=== PATIENT | female | born 1970 | race Caucasian/White ===

== ENCOUNTER 2022-02-21 10:36 | Outpatient (CLI) | payer OTHER, SELFPAY ==
--- NOTE | 2022-02-21 10:58 | ECG_ITS ---
Measurements Intervals [place] Rate: 65 P: 16 MO: 187 QRS: 22 QRSD: 102 T: 35 QT: 401 QTc: 418 Interpretive Statements SINUS RHYTHM NO PREVIOUS ECG AVAILABLE FOR COMPARISON Electronically Signed On 02-21-2022 17:26:21 CDT by Patience Gaspar M.D.
== END 2022-02-21 10:37 | disposition home or self-care (01) ==
LOC: ANHLAB 10:38
PROVIDERS: Visit Provider Neurological Surgery
DX: Z01.818 Encounter for other preprocedural examination (principal)
CPT/HCPCS: 93005

== ENCOUNTER 2022-03-11 07:57 | Outpatient (CLI) | payer OTHER, SELFPAY | END 2022-03-11 07:58 | disposition home or self-care (01) | LOC: ANHSURGERY 08:04 | PROVIDERS: Visit Provider Neurological Surgery | DX: M47.816 Spondylosis without myelopathy or radiculopathy, lumbar region (principal); Z01.818 Encounter for other preprocedural examination | CPT/HCPCS: 36415; 86850; 86900; 86901 ==

== ENCOUNTER 2022-03-15 18:16 | Observation (INO) | payer OTHER, SELFPAY ==
[2022-03-07 15:25] VITALS: BMI 36.6
--- NOTE | 2022-03-07 16:25 | PC.NURSE ---
Report to the Outpatient Waiting Room, entrance under the green pavilion located off [facility], at time _9:00AM on date __03/14/22 . Planned Procedure Time: __11:00AM . Time changes happen often and if your time is changed the preop area will call you the afternoon before. - You and your visitor will be asked to self-screen and do not enter if you have any COVID symptoms. - We encourage only one visitor and NO visitors under age 16 are allowed at this time. Your visitor will receive communication by the phone number that is given day of service. - The patient visitor is requested to social distance or may leave the building when not with patient due to restrictions. - A mask is required within the hospital. Patients may have clear liquids (water, carbonated beverages, clear teas, apple juice) until 3 hours prior to surgery with a maximum of 20 ounces. - No food from midnight until time of surgery - Take the following medications with a SIP of water the morning of surgery: ___NONE-TAKE YOUR MEDS AT NIGHT ON 03/13/22 PER YOUR ROUTINE Medications to discontinue per physician ALL SUPPLEMENTS AND VITAMINS Date to take last dose__03/11/22 Please no make-up, nail singaporean, hairspray, perfume, deodorant, or body powder the day of surgery. No jewelry (including any body piercings) or valuables the day of surgery, leave them at home. Please take a shower or bath the night before, or the morning of, surgery with an antibacterial soap. Wear comfortable, loose fitting clothing. Children are encouraged to wear pajamas. - Jewelry must be removed prior to entering the operating room. Rings and piercings that are not removed may be cut off. - The hospital will not accept responsibility for valuables. - Please leave all valuables, including medications, at home the day of surgery. If you are going home after surgery, a licensed bus driver/monitor must drive you home. - NO public transportation without another adult. - We recommend that an adult stay with you for 24 hours following discharge. - We also recommend that you do not drive, make important decision, drink alcoholic beverages, or take any drugs that were not prescribed by your health care provider for at least 24 hours after your discharge time. Follow any additional instructions given to you from your surgeon. If you or anyone in your household have experienced Covid symptoms in the past week, please notify your surgeon or the nurse liaison at the phone number below for possible testing. Telephone instructions given to __SHARONA and asked if any additional questions and then verbalized understanding. Patient advised to call surgeon office or pre surgery nurse liaison [phone] if any additional questions.
--- NOTE | 2022-03-13 16:25 | WPDANESEPPF ---
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 Patient Data Age: 52 Gender: F Height: 1.65 m Weight: 100 kg Allergies Allergy/AdvReac Type Severity Reaction Status Date / Time meperidine Allergy Intermediate Swelling Verified 03/07/22 16:10 of Lip/Tongue/Throat codeine Allergy Mild Rash Verified 02/18/22 16:13 Home Medications Medication Instructions Recorded Confirmed Type zesehewpkw-ahwlrzblvviah-nfbbrdhy 1 tablet PO Q6H PRN Migraine 02/18/22 03/07/22 History 50 mg-325 mg-40 mg tablet Headache cetirizine 10 mg tablet 10 mg PO DAILY PRN ALLERGIES 02/18/22 03/07/22 History diclofenac sodium 75 mg 75 mg PO DAILY PRN Pain 02/18/22 03/07/22 History tablet,delayed release ergocalciferol (vitamin D2) 50 mcg 50 mcg PO DAILY 02/18/22 03/07/22 History (2,000 unit) capsule estradiol 0.5 mg tablet 0.5 mg PO DAILY 02/18/22 03/07/22 History ezetimibe 10 mg tablet 10 mg PO DAILY 02/18/22 03/07/22 History fenofibrate 160 mg tablet 160 mg PO DAILY 02/18/22 03/07/22 History montelukast 10 mg tablet 10 mg PO DAILY 02/18/22 03/07/22 History (Singulair) ondansetron 8 mg disintegrating 8 mg PO Q12H PRN Nausea 02/18/22 03/07/22 History tablet propranolol 20 mg tablet 20 mg PO DAILY 02/18/22 03/07/22 History rosuvastatin 40 mg tablet 40 mg PO DAILY 02/18/22 03/07/22 History tizanidine 4 mg capsule 4 mg PO QHS PRN Spasms 02/18/22 03/07/22 History valacyclovir 1 gram tablet 1,000 mg PO DAILY PRN Cold Sores 02/18/22 03/07/22 History venlafaxine 37.5 mg tablet 37.5 mg PO DAILY 02/18/22 03/07/22 History Zinc Gummie 1 gummy PO DAILY 03/07/22 03/07/22 History albuterol 90 mcg/actuation aerosol 90 mcg inhalation Q4-5H PRN SOB 03/07/22 03/07/22 History inhaler azelastine 137 mcg (0.1 %) nasal 2 spray intranasal BID 03/07/22 03/07/22 History spray aerosol calcium carbonate 600 mg calcium 600 mg PO DAILY 03/07/22 03/07/22 History (1,500 mg) tablet (Calcium) cholecalciferol (vitamin D3) 125 125 mcg PO DAILY 03/07/22 03/07/22 History mcg (5,000 unit) tablet (Vitamin D3) diphenhydramine HCl 25 mg capsule 25 mg PO TID PRN Itching 03/07/22 03/07/22 History (Benadryl) fluticasone propionate 220 1 puff inhalation Q12H PRN SOB 03/07/22 03/07/22 History mcg/actuation HFA aerosol inhaler (Flovent HFA) hydrocodone 5 mg-acetaminophen 325 1 tablet PO Q4H PRN MIGRAINES 03/07/22 03/07/22 History mg tablet magnesium citrate 100 mg tablet 100 mg PO DAILY 03/07/22 03/07/22 History multivitamin with minerals-folic 1 tablet PO DAILY 03/07/22 03/07/22 History acid 200 mcg chewable tablet (Adult Multivitamin Gummies) potassium 99 mg tablet 99 mg PO DAILY 03/07/22 03/07/22 History ubrogepant 100 mg tablet (Ubrelvy) 100 mg PO ONCE PRN Migraine 03/07/22 03/07/22 History Headache ECG: Date of Service: 02/21/22 Procedure(s): CA 12 lead EKG Accession Number(s): [id number] cc: ~ ? Measurements Intervals? [place]? Rate: ? 65 ? P:? 16 [place]: ? 187? QRS:? 22 QRSD: ? 102? T:? 35 QT: ? 401? QTc:? 418? Interpretive Statements SINUS RHYTHM NO PREVIOUS ECG AVAILABLE FOR COMPARISON Electronically Signed On 02-21-2022 17:26:21 CDT by Patience Gaspar M.D. Patient hx anesthesia problems: none Family hx anesthesia problems: none Results Review: All pre-operative results and documents have been reviewed as part of the pre-operative evaluation. [facility] Past Medical History Medical History (Updated 03/13/22 @ 16:26 b
[2022-03-14] VITALS (13 sets, daily range): BP systolic 99–138; BP diastolic 50–88; PULSE 57–93; RESP 12–20; TEMP 36.1–37.2; O2SAT 94–100
[2022-03-14] MEDS: LACTATED RINGERS 1,000 ML 30 ML IV CONT ×2 (08:21→12:30)
--- NOTE | 2022-03-14 09:43 | WPDHPUPDATE1 ---
History and Physical Update Update Date/Time: 03/14/22 09:43 History and Physical has been reviewed, including an updated exam of the patient. There are NO changes in the patient's condition. Risks, benefits, and alternatives have been discussed and questions answered. Patient agrees to proceed with procedure.
[2022-03-14] MEDS: ceFAZolin 2 GM/D5W 50 ML 2 GM/50 ML BAG IVPB (10:01)
[2022-03-14] MEDS: BUPIVACAINE/EPINEPHRINE 0.25% 50 ML VIAL INFILTRATE (10:38)
--- NOTE | 2022-03-14 12:35 | W.PM.PROC2 ---
Procedure Note - Detailed Date of Procedure 03/14/22 Pre-op Diagnosis L 4-5 Spondylosis, Synovial cyst Post-op Diagnosis Same Procedure Performed L4-5 complete diskectomy, bilateral neural foraminotomy, complete diskectomy, interbody arthrodesis utilizing Orthofix titanium interbody devices and local autograft bone, L4-5 pedicle screw instrumentation Surgeon Arvind Us MD Small Machine Bindery Operator Riri Anesthesia General Indications Karine is a 52-year-old female with back and leg pain related to severe spondylosis and gapping of the facets at L4-5 with synovial cyst. She presents now for posterior lumbar interbody fusion at that level. Description of Procedure The patient was brought to the operating room in the supine position, was sedated, intubated and placed under general anesthesia in routine fashion. She was then turned into the prone position on a Wilfredo frame. The area of operation on her back was examined, marked for incision, prepped and draped in routine sterile fashion. Incision was marked over the L4-L5 spinous processes in the midline. This area was injected 0.5% lidocaine with [id number] epinephrine. Intravenous antibiotics given prior to incision. Incision was made with a 10 blade scalpel down to the lumbodorsal fascia. Subperiosteal dissection of the muscle soft tissue away spinous process and lamina at L4-5 bilaterally was with a subperiosteal elevator and Bovie cautery. A verifying x-rays obtained to verify the level of operation. The L4 spinous process was removed with a Danette rongeur. Kerrison punches, curved curettes and a Leksell rongeur were used to remove lamina in the midline until the soft contents of the canal were encountered. A Midas Dilip drill was used to resect pars bilaterally at L4. The inferior articular process and facet of L4 could then be removed bilaterally. These +spinous process were stripped free of soft tissue and morselized for later use as interbody autograft. Curved curettes and Kerrison punches were used to define a plane with the dura and removed bone and ligament flush with the pedicle and through the L4-5 foramen widely decompressing the exiting nerve root. With the thecal sac retracted and protected the disc space was entered bilaterally using an 11 blade scalpel. Scrapers of various sizes curettes of various configurations, pituitary rongeur and a rasp were used to remove as much cartilaginous endplate and disc material as possible down to bleeding cortical flat surfaces on the opposing bones. The disc space was incised and 11 mm interbody devices were chosen. These were filled with local autograft bone. The disc space was likewise filled with local autograft bone medially and anteriorly. The interbody devices were then placed with 2-3 mm countersink within the disc space bilaterally. Pedicle screw instrumentation was then performed by observing and palpating the pedicle while in hole was made and superior to the process above the pedicle using a Midas Dilip drill. Pedicle was then cannulated with a pedicle probe, checked for continuity with the ball probe, tapped the 5.5 mm tap and a 6.5 x 50 mm screw was placed into each pedicle on each side. Rods were placed in the screw heads on either side and secured position using the caps for that purpose. These were definitively tightened with a torque and anti torque device. A verifying x-rays obtained to verify good position of the instrumentation which was confirmed. The wound was then copiously irrigated with bacitracin irrigation all bleeding stopped with bipolar and Bovie cautery and Gelfoam thrombin powder. A medium Hemovac drain was left in the subfascial position buried out the info and right of the incision. The wound was then closed in layered fashion with 2-0 Vicryl interrupted sutures in the lumbodorsal fascia and Abdoulaye's layer. 3-0 Vicryl buried interrupted sutures were placed in the dermis and the skin was closed with a running 4-0 Monocryl
[2022-03-14] MEDS: fentaNYL CITRATE INJ (*CRX) 100 MCG/2 ML VIAL 25 MCG IV PUSH ×8 (12:53→14:08)
[2022-03-14] MEDS: diphenhydrAMINE HCl INJ 50 MG/ML VIAL 25 MG IV PUSH (13:32)
[2022-03-14] MEDS: KCL 20 MEQ/D5/0.45% SOD CHL 1,000 ML 100 ML IV CONT (15:05)
[2022-03-14] MEDS: CYCLOBENZAPRINE HCL 10 MG TABLET PO ×2 (15:11→21:01)
--- NOTE | 2022-03-14 15:30 | PCPTNOTE ---
Attempted PT evaluation, per RN, pt is in too much pain to participate in therapy this date. Will Follow.
[2022-03-14] MEDS: MORPHINE SULFATE (*CRX) 2 MG/ML INJ IV PUSH ×4 (16:04→23:01)
--- NOTE | 2022-03-14 16:31 | PCOTNOTE ---
Attempted occupational therapy evaluation on this date, Per RN, pt is in too much pain to participate in therapy today. Will Follow.
[2022-03-14] MEDS: AZELASTINE HCL NASAL 0.1% 137 MCG/SPR 30 ML BTL 2 SPRAY NASAL (17:20)
[2022-03-14] MEDS: ONDANSETRON INJ 4 MG/2 ML VIAL IV PUSH (17:40)
[2022-03-14] MEDS: diphenhydrAMINE HCl CAP 25 MG CAPSULE PO (21:01)
[2022-03-14] MEDS: estradioL 0.5 MG TABLET PO (21:01)
[2022-03-14] MEDS: EZETIMIBE 10 MG TABLET PO (21:02)
[2022-03-14] MEDS: MONTELUKAST SODIUM 10 MG TABLET PO (21:02)
[2022-03-14] MEDS: PROPRANOLOL HCL 20 MG TABLET PO (21:02)
[2022-03-14] MEDS: ROSUVASTATIN 10 MG TABLET 40 MG PO (21:02)
[2022-03-14] MEDS: VENLAFAXINE HCL 37.5 MG TABLET PO (21:02)
[2022-03-14] MEDS: DOCUSATE SODIUM 100 MG CAPSULE PO (21:02)
[2022-03-14] MEDS: FENOFIBRATE 160 MG TABLET PO (21:02)
[2022-03-14] MEDS: ALPRAZolam (*CRX) 0.5 MG TABLET PO (23:01)
--- NOTE | ~2022-03-15 | XR_ITS ---
XR fluoroscopy no charge L4-5 posterior lumbar interbody fusion TECHNIQUE: Fluoroscopy used during L4-5 posterior lumbar interbody fusion performed by [Arvind Us MD] on 03/14/2022. 8 seconds of fluoroscopy time with 1 images captured. FINDINGS: Correlate with procedure note. IMPRESSION: Fluoroscopy used during L4-5 posterior lumbar interbody fusion. Reviewed, dictated and finalized at location B.
[2022-03-15 00:37] VITALS: BP 100/50; PULSE 78; RESP 18; TEMP 36.6; O2SAT 96
[2022-03-15] MEDS: oxyCODONE HCL (*CRX) 10 MG TAB SR 12HR PO ×2 (01:28→10:01)
[2022-03-15] MEDS: MORPHINE SULFATE (*CRX) 2 MG/ML INJ IV PUSH ×2 (05:20→11:35)
[2022-03-15] MEDS: KCL 20 MEQ/D5/0.45% SOD CHL 1,000 ML 100 ML IV CONT (05:20)
[2022-03-15 05:22] VITALS: BP 118/65; PULSE 83; RESP 16; TEMP 36.4; O2SAT 96
--- NOTE | 2022-03-15 07:56 | WPDANESPN ---
Anes - Prog Note Post-Op Date/Time: 03/15/22 07:56 Vital Signs: Last Vital Signs Temp 36.4 C 03/15/22 05:22 Pulse 83 03/15/22 05:22 Resp 16 03/15/22 05:22 BP 118/65 03/15/22 05:22 Pulse Ox 96 03/15/22 05:22 O2 Del Method Room Air 03/14/22 20:00 O2 Flow Rate 2 03/14/22 14:10 Pain Score (VAS): 6 I/O: Intake & Output 03/14/22 03/14/22 03/15/22 15:59 23:59 07:59 Intake Total 2250 50 1050 Output Total 629 65 5567 Balance 7090 -20 -972 Patient Feedback: Patient satisfied with anesthetic care.
[2022-03-15] MEDS: CYCLOBENZAPRINE HCL 10 MG TABLET PO (08:11)
[2022-03-15] MEDS: ONDANSETRON INJ 4 MG/2 ML VIAL IV PUSH (08:11)
[2022-03-15] MEDS: CHOLECALCIFEROL 1,000 UNITS TABLET 5000 UNITS PO (08:12)
[2022-03-15] MEDS: DOCUSATE SODIUM 100 MG CAPSULE PO ×2 (08:12→22:03)
[2022-03-15] MEDS: MULTIVITS W-FE,MIN CHEWABLE TABLET 1 TABLET PO (08:12)
[2022-03-15] MEDS: CALCIUM CARBONATE (OSCAL) 500 MG TABLET PO (08:12)
[2022-03-15] MEDS: AZELASTINE HCL NASAL 0.1% 137 MCG/SPR 30 ML BTL 2 SPRAY NASAL (08:12)
--- NOTE | 2022-03-15 13:10 | PC.NURSE ---
Driver/Merchandiser called Dr. Us office and spoke with Dr. Garrett. Order changes were made to MAR.
[2022-03-15 15:22] VITALS: BP 100/57; PULSE 83; RESP 18; TEMP 36.6; O2SAT 98
[2022-03-15] MEDS: ACETAMINOPHEN 500 MG TABLET PO (16:36)
--- NOTE | 2022-03-15 18:03 | WPDNEUROSGPN ---
Progress Note: A&P Assessment and Plan (1) Stenosis of lateral recess of lumbar spine: Code(s): M48.061 - Spinal stenosis, lumbar region without neurogenic claudication Status: Acute Assessment and Plan: 52 year old female POD#1 fromlumbar decompression and fusion Mobilizing - patient with history of chronic pain and thus more challenging to control operative pain - not unexpected Will remain here overnight and adjust mm relaxants Mobilize with PT in am - anticipate d/c in am on home regimen of norco and tizanadine Follow up with Dr. Us as scheduled in 6 weeks Subjective Date/time seen: 03/15/22 18:03 PAtient with significant hip pain. Ambulated in halls with PT Not tolerating pain medications due to soft blood pressure Arreaga d/c'ed and voiding independently Drain d/c'ed Exam Narrative: AWake, alert, orietned x 3 Speech CF RUTHY EOMI Face= TML MAEW with good strength Patient with pain and limited mobility - requires assistance to stand, but is able to stand under her own power Dressing / Incision CDI Objective Data Vital Signs Vital Signs: Vital Signs - 24 hr 03/14/22 21:02 03/14/22 21:02 03/14/22 20:00 Temperature 98.9 F Pulse Rate 82 93 Respiratory Rate 18 Blood Pressure 125/79 Pulse Oximetry 98 Oxygen Delivery Room Air 03/15/22 00:37 03/15/22 05:22 03/15/22 07:27 Temperature 98 F 97.6 F Pulse Rate 78 83 Respiratory Rate 18 16 Blood Pressure 100/50 L 118/65 Pulse Oximetry 96 96 Oxygen Delivery Room Air 03/15/22 08:08 03/15/22 09:30 03/15/22 15:22 Temperature 97.8 F Pulse Rate 83 Respiratory Rate 18 Blood Pressure 100/57 L Pulse Oximetry 98 Oxygen Delivery Room Air Room Air Intake/Output Intake/Output: Intake & Output 03/12/22 03/13/22 03/14/22 03/15/22 23:59 23:59 23:59 23:59 Intake Total 2300 1600 Output Total 160 1175 Balance 2140 425 Meds/Results Medications: Active Medications Generic Name Dose Route Start Last Admin Trade Name Freq PRN Reason Stop Dose Admin Acetaminophen 500 mg 03/15/22 12:48 03/15/22 16:36 Acetaminophen 500 Mg Tablet PO 500 mg Q4H PRN Administration Mild Pain (1-3) or Fever Al Hydrox/Mg Hydrox/Simethicone 20 ml 03/14/22 14:40 Mag Hydrox/Al Hydrox/Simeth 30 Ml Udc PO Q4H PRN Indigestion/Heartburn Albuterol 1 puff 03/14/22 15:02 Albuterol Sulfate (*Sp) Aerosol 1 Puff INHALATION Q4H PRN Shortness Of Breath Azelastine HCl 2 spray 03/14/22 17:00 03/15/22 16:41 Azelastine Hcl Nasal 0.1% 137 Mcg/Spr 30 Ml Btl NASAL Not Given BID NALLELY Bisacodyl 10 mg 03/14/22 14:40 Bisacodyl 10 Mg Suppository RECTAL DAILY PRN Constipation Calcium Carbonate 500 mg 03/15/22 09:00 03/15/22 08:12 Calcium Carbonate (Oscal) 500 Mg Tablet PO 500 mg DAILY NALLELY Administration Cyclobenzaprine HCl 10 mg 03/14/22 14:40 03/15/22 08:11 Cyclobenzaprine Hcl 10 Mg Tablet PO 10 mg TID PRN Administration Muscle Spasms Diphenhydramine HCl 25 mg 03/14/22 14:40 03/14/22 21:01 Diphenhydramine Hcl Cap 25 Mg Capsule PO 25 mg TID PRN Administration Itching Docusate Sodium 100 mg 03/14/22 21:00 03/15/22 08:12 Docusate Sodium 100 Mg Capsule PO 100 mg Q12HR NALLELY Administration Ezetimibe 10 mg 03/14/22 21:00 03/14/22 21:02 Ezetimibe 10 Mg Tablet PO 10 mg HS NALLELY Administration Estradiol 0.5 mg 03/14/22 21:00 03/14/22 21:01 Estradiol 0.5 Mg Tablet PO 0.5 mg HS NALLELY Administration Fenofibrate 160 mg 03/14/22 21:00 03/14/22 21:02 Fenofibrate 160 Mg Tablet PO 160 mg HS NALLELY Administration Fluticasone Propionate 1 puff 03/14/22 14:40 Fluticasone Prop 220 Mcg (*Sp) 12 Gm Inhaler INHALATION Q12H PRN Shortness Of Breath Cefazolin Sodium 1 gm in 50 mls @ 100 mls/hr 03/14/22 18:00 03/15/22 10:32 Ancef 1 Gm/D5w 50 Ml Pm IVPB Infused Q8H NALLELY Infusion Loratadine
[2022-03-15 19:49] VITALS: BP 118/71; PULSE 83; RESP 18; TEMP 37.1; O2SAT 94
[2022-03-15 22:03] VITALS: PULSE 68
[2022-03-15] MEDS: estradioL 0.5 MG TABLET PO (22:03)
[2022-03-15] MEDS: PROPRANOLOL HCL 20 MG TABLET PO (22:03)
[2022-03-15] MEDS: TIZANIDINE HCL 4 MG TABLET BY MOUTH (22:03)
[2022-03-15] MEDS: ROSUVASTATIN 10 MG TABLET 40 MG PO (22:04)
[2022-03-15] MEDS: VENLAFAXINE HCL 37.5 MG TABLET PO (22:04)
[2022-03-15] MEDS: MONTELUKAST SODIUM 10 MG TABLET PO (22:04)
[2022-03-15] MEDS: EZETIMIBE 10 MG TABLET PO (22:04)
[2022-03-15] MEDS: FENOFIBRATE 160 MG TABLET PO (22:04)
[2022-03-16] MEDS: oxyCODONE HCL (*CRX) 5 MG TAB IR PO ×3 (02:16→13:13)
[2022-03-16 04:36] VITALS: BP 111/67; PULSE 72; RESP 18; TEMP 36.4; O2SAT 95
[2022-03-16] MEDS: LORATADINE 10 MG TABLET PO (08:27)
[2022-03-16] MEDS: CALCIUM CARBONATE (OSCAL) 500 MG TABLET PO (08:27)
[2022-03-16] MEDS: MULTIVITS W-FE,MIN CHEWABLE TABLET 1 TABLET PO (08:27)
[2022-03-16] MEDS: CHOLECALCIFEROL 1,000 UNITS TABLET 5000 UNITS PO (08:28)
[2022-03-16] MEDS: AZELASTINE HCL NASAL 0.1% 137 MCG/SPR 30 ML BTL 2 SPRAY NASAL (08:29)
[2022-03-16] MEDS: TIZANIDINE HCL 4 MG TABLET BY MOUTH (08:29)
[2022-03-16] MEDS: DOCUSATE SODIUM 100 MG CAPSULE PO (08:29)
--- NOTE | 2022-04-08 09:36 | PM.DS ---
DS: Admitting Diagnosis Discharge Date 03/16/22 Admitting Diagnosis L4-5 spondylolisthesis and spondylosis DS: Summary Hospital Course Hospital Course: Karine was taken to the operating room on 03/14/2022 with the aforementioned L4-5 posterior lumbar interbody fusion was performed without complication. Physical and occupational therapy were involved in her care. On postoperative day 1 her drain and Arreaga catheter removed. By postop day 2 she was eating, ambulating and a pain was under control by mouth pain medicine. Her wounds remain clean, dry and intact. She was afebrile stable vital signs. She was therefore allowed to be discharged home. Time Spent with Patient Time attestation: Total time spent providing and/or coordinating discharge services: Discharge Plan Discharge Attending physician on discharge: Arvind Us Consulting providers: Pk Choudhary ; Amado Holden ; Jenny Pop ; Charlotte Garrett Discharging Clinician: Mannie Mendes Anticipated Discharge Date/Time: 03/16/22 12:58 Patient Disposition: Home, Self-Care Activity: other - see discharge instructions Diet: regular Wound Care Instructions: follow printed instructions Discharge Instructions: discharge to home in am 03/16 Ok to shower on POD # 3 Ok to remove dressing and keep off today. No bending, lifting greater than 10 lbs, or exaggeratred twisting Stand Alone Forms: Avoid NSAIDs, General Discharge Instructions Follow-up/Referrals: Arvind Us MD [Physician] - Discharge Medications: New hydrocodone-acetaminophen 5-325 mg tablet 1 tablet PO Q4H PRN (Reason: pain) Qty: 35 0RF tizanidine 4 mg tablet 4 mg PO Q8H PRN (Reason: muscle spasticity) Qty: 30 0RF Continued estradiol 0.5 mg tablet 0.5 mg PO DAILY Rx Instructions: off 5 days; repeat cycle TAKES @ HS cetirizine 10 mg tablet 10 mg PO DAILY PRN (Reason: ALLERGIES) diclofenac sodium 75 mg tablet,delayed release (DR/EC) 75 mg PO DAILY PRN (Reason: Pain) fenofibrate 160 mg tablet 160 mg PO DAILY Rx Instructions: TAKES @ HS ezetimibe 10 mg tablet 10 mg PO DAILY Rx Instructions: TAKES @ HS montelukast [Singulair] 10 mg tablet 10 mg PO DAILY Rx Instructions: TAKES @ HS ondansetron 8 mg tablet,disintegrating 8 mg PO Q12H PRN (Reason: Nausea) Rx Instructions: FOR NAUSEA WITH MIGRAINES propranolol 20 mg tablet 20 mg PO DAILY Rx Instructions: FOR MIGRAINES TAKES @ HS rosuvastatin 40 mg tablet 40 mg PO DAILY Rx Instructions: TAKES @ HS tizanidine 4 mg capsule 4 mg PO QHS PRN (Reason: Spasms) valacyclovir 1 gram tablet 1,000 mg PO DAILY PRN (Reason: Cold Sores) venlafaxine 37.5 mg tablet 37.5 mg PO DAILY Rx Instructions: TAKES @ HS ergocalciferol (vitamin D2) 50 mcg (2,000 unit) capsule 50 mcg PO DAILY Rx Instructions: TAKES @ HS srqxvwvobr-ozekwrvvszfoc-ghlb 50-325-40 mg tablet 1 tablet PO Q6H PRN (Reason: Migraine Headache) hydrocodone-acetaminophen 5-325 mg Tablet 1 tablet PO Q4H PRN (Reason: MIGRAINES) azelastine 137 mcg (0.1 %) Aerosol,[place] 2 spray INTRANASAL BID Rx Instructions: administer into each nostril Zinc Gummie 1 gummy PO DAILY calcium carbonate [Calcium 600] 600 mg calcium (1,500 mg) Tablet 600 mg PO DAILY potassium 99 mg Tablet 99 mg PO DAILY cholecalciferol (vitamin D3) [Vitamin D3] 125 mcg (5,000 unit) Tablet 125 mcg PO DAILY Adult Multivitamin Gummies 200 mcg Tablet,Chewable 1 tablet PO DAILY magnesium citrate 100 mg Tablet 100 mg PO DAILY fluticasone propionate [Flovent HFA] 220 mcg/actuation Hfa Aerosol Inhaler 1 puff INHALATION Q12H PRN (Reason: SOB) albuterol 90 mcg/actuation Aerosol 90 mcg INHALATION Q4-5H PRN (Reason: SOB) Ubrelvy 100 mg Tablet 100 mg PO ONCE P
== END 2022-03-16 13:48 | disposition home or self-care (01) ==
LOC: ANHSURGERY 18:23 → ANH3MED 03-16 13:02
PROVIDERS: Admitting Provider Neurological Surgery; Visit Provider Neurological Surgery
PROC: (CPT 22612; principal; 2022-03-14 09:30)
DX: M47.26 Other spondylosis with radiculopathy, lumbar region (principal); M48.061 Spinal stenosis, lumbar region without neurogenic claudication; M51.16 Intervertebral disc disorders with radiculopathy, lumbar region; M71.38 Other bursal cyst, other site; K21.9 Gastro-esophageal reflux disease without esophagitis; E78.00 Pure hypercholesterolemia, unspecified; E78.5 Hyperlipidemia, unspecified; M16.9 Osteoarthritis of hip, unspecified; G47.33 Obstructive sleep apnea (adult) (pediatric); F10.90 Alcohol use, unspecified, uncomplicated; Z87.891 Personal history of nicotine dependence; Z79.891 Long term (current) use of opiate analgesic; Z79.1 Long term (current) use of non-steroidal anti-inflammatories (NSAID); Z79.51 Long term (current) use of inhaled steroids; Z79.890 Hormone replacement therapy; Z79.899 Other long term (current) drug therapy
CPT/HCPCS: 22630; 22840; 20936; 22853; 36415; 86850; 86900; 86901; 93005; 97161; 97165; 97530; 97535; 99199; A9270; C1713; G0378; J0690; J1100; J1170; J1200; J2250; J2270; J2405; J2704; J3010; J3480; J7120

== ENCOUNTER 2022-04-30 09:47 | Outpatient (CLI) | payer OTHER, SELFPAY ==
--- NOTE | ~2022-04-30 | XR_ITS ---
Lumbosacral Spine: AP and lateral views Clinical History: Pain The normal lordotic curve is maintained. Posterior fusion hardware is present extending from L4 to L5 , with bilateral rods and transpedicular screws present. This fusion device present at the L4-L5 disc space. Probable associated L4 laminectomy. Remaining intervertebral disc spaces are preserved. No fr acture or subluxation. Advanced degenerative disc narrowing noted at L5-S1. The sacroiliac joints are normally outlined. Impression: Postoperative changes at the L4-L5 level, as detailed above. Advanced degenerative disc narrowing at L5-S1. Reviewed, dictated and finalized at location [] [facility] Impression: Postoperative changes at the L4-L5 level, as detailed above. Advanced degenerative disc narrowing at L5-S1.
== END 2022-04-30 09:48 | disposition home or self-care (01) ==
LOC: ANHIMG 09:52
PROVIDERS: Visit Provider Neurological Surgery
DX: Z98.890 Other specified postprocedural states (principal); Z98.1 Arthrodesis status; M51.37 Other intervertebral disc degeneration, lumbosacral region
CPT/HCPCS: 72100